=== PATIENT | female | born 1940 | race Caucasian/White ===

== ENCOUNTER → 2025-02-18 11:02 | Outpatient (CLI) | payer MEDICARE, SELFPAY ==
[2025-02-18 12:47] LABS: C-Reactive Protein Quant < 0.5 mg/dL (<1.0)
[2025-02-18 13:36] LABS: Erythrocyte Sedimentation Rate 7 MM/HR (0-20)
[2025-02-20 13:14] LABS: Antimyeloperoxidase Antibodies <0.2 units (0.0-0.9); Antiproteinase 3 Antibodies <0.2 units (0.0-0.9); Cytoplasmic C-ANCA <1:20 titer (Neg:<1:20); Perinuclear P-ANCA <1:20 titer (Neg:<1:20)
== END ==
PROVIDERS: PCP Student in an Organized Health Care Education/Training Program; Referring Provider Internal Medicine Critical Care Medicine; Visit Provider Internal Medicine Critical Care Medicine
DX: J84.9 Interstitial pulmonary disease, unspecified (principal)
CPT/HCPCS: 36415; 85651; 86038; 86140; 86200; 86256

== ENCOUNTER → 2025-03-22 | Outpatient (CLI) | payer MEDICARE, SELFPAY ==
--- NOTE | 2025-03-22 13:57 | DI.US.S_ITS ---
US biopsy RT axilla: 03/22/2025. Rad-Path Correlation: Pending CLINICAL: 84-year old female for right procedure. Tyrer-Cuzick lifetime risk of 2.6%. Current reported family history of breast cancer: sister. The patient had a prior right breast biopsy. PRIOR EXAMS: PET 03/06/25. CONSENT Risks including but not limited to bleeding and infection, benefits and alternatives were discussed with the patient. The patients agreed to the procedure, reported no allergy to local anesthesia and signed the consent form. ROUTINE Right: Patient positioned in the supine or supine-oblique position, prepped and draped in the usual manner using sterile technique. TECHNIQUE Right: Axilla: Procedure: Ultrasound-guided core biopsy of a lymph node. Device: 18-gauge core biopsy instrument. Tenmo. Approach: Direct. Anesthesia: Local anesthesia obtained using 1%-lidocaine. Skin Entry: Direct. Passes: 4. Specimens: 4. Targeting Confirmation: Real-time Observation. Post-procedure imaging: Post-procedure mammogram confirms in target location. Rad/Path Correlation: Pending receipt of pathology report. Conclusion: Ultrasound-guided Core biopsy with post-procedure mammogram, Right: Axilla COMPLICATIONS: No complications were encountered while the patient was in our department. DISPOSITION The patient left our department in good condition with aftercare instructions and urged to contact us should any problem arise. SUMMARY Right: Axilla: Ultrasound-guided core biopsy of a lymph node. COMMENTS * Samples sent in formalin and RPMI. PATHOLOGY Right: Axilla: Radiologist-Pathologist Correlation: Pending receipt of pathology report. ELECTRONICALLY SIGNED: Sanjiv Vargas M.D. on 03/22/2025 at 04:22:26 PM PT Interpreting Station ID: [id number]
--- NOTE | 2025-03-22 14:58 | DI.MG.S_ITS ---
MM clip placement RT: 03/22/2025. BI-RADS: None CLINICAL: 84-year old female for right diagnostic mammogram. Tyrer-Cuzick lifetime risk of 2.0%. Current reported family history of breast cancer: sister. The patient had a prior right breast biopsy. PRIOR EXAMS No prior examinations available. MAMMOGRAPHY TECHNIQUE: 2D and 3D (tomosynthesis) digital mammographic views obtained, with additional images as needed for full coverage. Current study was also evaluated with a Computer Aided Detection (CAD) system. DENSITY Right: C. The breast is heterogeneously dense, which may obscure small masses. MAMMOGRAPHY FINDINGS Right: There is a biopsy marker in targeted location. IMPRESSION: Right * Biopsy marker present. COMMENTS: Numerous suspicious axillary enlarged lymph nodes are seen. OVERALL ASSESSMENT CATEGORY BI-RADS None: This exam requires no BI-RADS. ELECTRONICALLY SIGNED: Sanjiv Vargas M.D. on 03/22/2025 at 04:23:31 PM PT Interpreting Station ID: [id number]
--- NOTE | 2025-03-22 15:41 | PATH_ITS ---
[facility] Accession Number: [id number] No. of containers..01 Tissue . 01 Material submitted: . axilla - RIGHT AXILLA LYMPHNODE . 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 V 03/28/2025 1144 Local . 01 Comment: Concurrent flow cytometric analysis identified a kappa-monoclonal B-cell population, partial CD5 positive (please see complete flow cytometry report under ID# [id number]), for details. . Results were called to Dr. Francisco J Bcekett, on 03/27/2025, at 12:45 pm. . 01 Electronically signed: . Tom Etienne MD, Pathologist NPI- [id number] . 01 Gross description: . The specimen is received in formalin, labeled with two patient identifiers and right axilla lymph node, and consists of a 1.0 x 0.2 x 0.1 cm aggregate of slightly hemorrhagic, fragmented tissue needle cores, which are submitted in toto in cassette A1. ([id number]) /[facility] 03/23/2025 0938 Local . 01 Microscopic: . . Microscopic examination reveals diffuse proliferation of variably sized lymphocytes, predominantly small-sized with scant cytoplasm, clumped chromatin, and inconspicuous nucleolus, focally admixed with intermediate and large-sized lymphocytes with prominent nucleolus, within pale areas, consistent with proliferation centers (pseudofollicles) and a few scattered mitotic figures. To further evalute these lymphocytes, a panel of immunostains is performed with the following results: . CD3: T lymphocytes positive. CD20: Neoplastic B lymphocytes dim-positive. PAX5: Neoplastic B lymphocytes positive. CD5: B lymphocytes dim-positive (in addition to background T lymphocytes with stronger intensity positivity). Cyclin D1: Neoplastic B lymphocytes negative (this result argues against Mantle cell lymphoma). CD23: Neoplastic B lymphocytes positive. BCL2: Neoplastic B lymphocytes positive. BCL6 and CD10: Neoplastic B lymphocytes negative (this result argues against Follicular lymphoma). CD43: Neoplastic B lymphocytes positive. Proliferation marker Ki67: Variable expression, ranging from 10-20% to focal 30-40%, please see note. MANSOOR (panepithelial marker): Negative for metastatic carcinoma. . . Note: The presence of proliferation centers, in association with a higher proliferation index raises the possibility for histologically aggressive chronic lymphocytic leukemia/small lymphocytic lymphoma. . The nature of the biopsy (needle core biopsy) limits architectural evaluation; therefore, correlation with imaging studies is essential. . In this limited biopsy, there is no definite evidence for Banks's transformation; however, histologically aggressive features (proliferation areas with increased ki-67) are concerning for possible aggressive clinical course. . Clinical and radiologic correlation is recommended. . * This test was developed and the performance characteristics were validated by [employer]. It has not been cleared or approved by the [place]. Food and Drug Administration. . 01 Pathologist provided ICD-10: C83.04 . 01 CPT . 823636, H04476, R03915 Performed at: [address] [address], [place], [place] [id number] MD Marito Rivera MD Phone: [phone]
== END ==
PROVIDERS: PCP Student in an Organized Health Care Education/Training Program; Visit Provider Radiology Diagnostic Radiology
DX: R59.1 Generalized enlarged lymph nodes (principal); Z80.3 Family history of malignant neoplasm of breast; R92.331 Mammographic heterogeneous density, right breast; C91.10 Chronic lymphocytic leukemia of B-cell type not having achieved remission
CPT/HCPCS: 38505; 76942; 77065